=== PATIENT | female | born 1965 | race Caucasian/White ===

== ENCOUNTER → 2016-07-08 | Outpatient (CLI) | payer OTHER ==
[~2016-07-08] MED LIST: ALBUTEROL17 GM INH; AMLODIPINE BESY10 MG PO; AMOXICILLIN; AMOXICILLIN500 M1 PO; APRESOLINE10 M1 DOB; AUGMENTIN PO; BACTRIM DS TABL1 TA1 PO; BREO ELLIPTA 21 EACH; CATAPRES0.3 MG PO; COLACE PO; COMBIVENT INH14.7 GM INH; COMBIVENT U/D3 M1 INH; COMBIVENT U/D3 M2 INH; COUMADIN3 MG; DELTASONE20 MG PO; DOXYCYCLINE PO; DUONEB 2.5-0.5 M3 ML; FENOFIBRATE200 M1 PO; FLEXERIL PO; FLEXERIL10 M1 PO; HYCODAN60 ML 5MG/ PO; HYDROCODON-ACE1 EAC5 PO; HYDROCODONE-APA1 T51 PO; K-DUR10 MEQ PO; KLONOPIN PO; LASIX20 MG PO; LEVAQUIN PO; LISINOPRIL PO; LORTAB 10-5001 EACH PO; MEDROL DOSEPAK4 MG PO; MOTRIN400 MG PO; NICODERM C1 PATCH .3; NICODERM CQ1 EACH; PERCOCET 5-3251 TAB PO; PHENERGAN W/CO120 ML PO; POTASSIUM20 MEQ/11; PREDNISONE; PREDNISONE PO; PREDNISONE10 MG/DOSE PO; PRILOSEC PO; PROTONIX PO; PULMICORT0.5 MG/2 M IH; SEROQUEL PO; TRAMADOL HCL50 M1; TRAMADOL HCL50 M1 PO; VIBRAMYCIN100 M1 PO; VICODIN 5/1 TAB 5/50 PO; WATER PILL; ZANAFLEX4 M1 PO; ZESTRIL10 M1 PO; ZESTRIL10 MG PO
--- NOTE | ~2016-07-08 | MY11 ---
[facility] A Service of [facility] RADIOLOGY TEXT RESULTS PATIENT: DEYVI COON LOCATION: [facility] : [birth year] UNIT #: [id number] AGE: [address]: TOBI ROTHMAN SEX: F ORDER DR: [id number] [facility] [address]. [place], [place] [address] [id number] O MR#: [id number] Acc #: [id number] NAME: DEYVI COON. : 1965 SEX: F STUDY DATE/TIME: 07/08/2016 15:42 UNIT: [facility] ROOM: STUDY DESCRIPTION: MY Mammogram Screening Dig Jose Attending Physician: Tobi Rothman M.D. Referring Physician: Tobi Rothman M.D. Ordering Physician: Tobi Rothman M.D. Primary Care Physician: Tobi Rothman M.D. MEDICAL IMAGING REPORT This report is preliminary unless electronic signature is present EXAM Screening mammogram, 07/08 INDICATIONS 50-year-old with no personal or family history of breast cancer. No current complaints. FINDINGS Routine digital screening views of both breasts were obtained. Study is reviewed with an FDA-approved CAD device. Comparison made with 12/04/2009. Breast parenchyma shows scattered fibroglandular densities. There are no new masses. There are benign calcifications in both breasts. There is a small group of calcifications in the left breast in the upper inner quadrant. These are probably benign but they are increased. Magnification views recommended. IMPRESSION 1. Benign right mammogram. 2. Small cluster of calcifications in the left upper inner quadrant. Magnification views recommended. Patients over the age of 40 are entered into a reminder system with target due date for the next mammogram. A result letter will also be sent to the patient. BIRADS: 0 Need Additional Imaging Evaluation and/or Prior Mammograms For Evaluation Dictated by... [facility] A Service of [facility] RADIOLOGY TEXT RESULTS PATIENT: DEYVI COON LOCATION: [facility] : 65 UNIT #: [id number] AGE: [address]: TOBI ROTHMAN SEX: F ORDER DR: Matt Peterson Jr., M.D. THIS IS AN ELECTRONICALLY VERIFIED REPORT Matt Peterson Jr., M.D. at 07/09/2016 10:17 AM HEATHER/leonardo TD: 07/08/2016 21:43 JOB #: [id number] MEDICAL IMAGING REPORT Page 1 of 1 COPY
== END | disposition home or self-care (01) ==
LOC: CWCC 15:11
DX: Z12.31 Encounter for screening mammogram for malignant neoplasm of breast (principal); R92.1 Mammographic calcification found on diagnostic imaging of breast
CPT/HCPCS: G0202

== ENCOUNTER → 2016-09-09 | Outpatient (CLI) | payer OTHER ==
--- NOTE | ~2016-09-09 | EKG ---
PATIENT: DEYVI COON UNIT #: [id number] Ventricular Rate: 73 BPM Atrial Rate: 73 BPM P-R Interval: 148 ms QRS Duration: 78 ms Q-T Interval: 386 ms QTC Calculation(Bezet): 425 ms P [place]: 52 degrees Calculated R [place]: 37 degrees Calculated T [place]: 36 degrees Diagnosis Line: Normal sinus rhythm Diagnosis Line: Normal ECG Diagnosis Line: When compared with ECG of 25-AUG-2012 05:55, Diagnosis Line: No significant change was found Diagnosis Line: Confirmed by SAMY NOEL MD ([id number]) on Diagnosis Line: 09/09/2016 5:12:04 PM INTERPRETING MD: SADIE HOU
[2016-09-09 14:35] LABS: HEMATOCRIT 38.2 % (35.0-45.0); HEMOGLOBIN 12.9 gm/dL (12.0-16.0); MEAN CORPUSCULAR HEMOGLOBIN 30.1 PG (28-34); MEAN CORPUSCULAR HGB CONC 33.8 g/dL (30-36); MEAN PLATELET VOLUME 6.9 FL (6.5-11.5); RED BLOOD COUNT 4.3 X10e (3.90-5.30); RED CELL DISTRIBUTION WIDTH 13.9 % (11.0-15.5); WHITE BLOOD COUNT 10.6 X10e3 (4.0-10.5)
[2016-09-09 15:12] LABS: BUN/CREATININE RATIO 11.11; CREATININE SERUM 0.9 mg/dL (0.6-1.4); GLOM FILT RATE Estimated 74.6 mL/min (>60); POTASSIUM 3.6 mmol/L (3.5-5.1)
== END | disposition home or self-care (01) ==
LOC: CAMB 14:00
PROVIDERS: Specialist
DX: Z01.818 Encounter for other preprocedural examination (principal); K43.2 Incisional hernia without obstruction or gangrene; K42.9 Umbilical hernia without obstruction or gangrene
CPT/HCPCS: 36415; 80048; 85027; 93005

== ENCOUNTER → 2016-09-16 | Day surgery (SDC) | payer OTHER ==
--- NOTE | ~2016-09-16 | OR ---
Unit #: [id number] #: [id number] Patient: DEYVI COON [id number] [address] [place], [place] [address] [id number] O MR#: [id number] NAME: DEYVI COON ROOM: Date of Procedure: 09/16/2016 Admission Date: 09/16/2016 Surgeon: Matt Martínez M.D. : 1965 Attending Physician: Matt Martínez M.D. Primary Care Physician: Tobi Gonzalez M.D. OPERATIVE REPORT PREOPERATIVE DIAGNOSES Incarcerated incisional hernia and incarcerated umbilical hernia. POSTOPERATIVE DIAGNOSES Incarcerated incisional hernia and incarcerated umbilical hernia. PROCEDURES PERFORMED Open repair incisional ventral hernia with 8 cm Ventralex mesh and open repair of incarcerated umbilical hernia with 8 cm Ventralex mesh. ANESTHESIA General endotracheal anesthesia. ESTIMATED BLOOD LOSS Less than 20 mL. INDICATIONS FOR PROCEDURE A 51-year-old female, who has had a previous gastrostomy tube, presented with a painful and incarcerated hernia at the old G-tube site. She also had an incarcerated umbilical hernia. DESCRIPTION OF PROCEDURE The patient was admitted to [facility], positively identified, and transported to the operating room, and after induction of general endotracheal anesthesia, she received antibiotics per SCIP protocol and was prepped and draped in usual sterile fashion. At the gastrostomy tube site, a wedge excision was performed to remove the old scar. I dissected down through the soft tissue, identified the hernia sac, opened the hernia sac at the level of the fascia and mobilized and reduced the incarcerated omentum. The fascial defect was about 2.5 cm. I palpated through the defect and no other palpable defects were noted. An 8 cm Ventralex mesh was positioned in the peritoneal cavity and pulled up taut against the underlying fascia. It was secured circumferentially with 0 Ethibond interrupted sutures. 0.5% Marcaine with epinephrine was infiltrated in the fascia. Soft tissue was closed with 3-0 Vicryl interrupted sutures and the skin was reapproximated with 4-0 Monocryl subcuticular closure and Dermabond skin adhesive. At the umbilicus, a transverse incision was made below the umbilicus. The umbilical skin was from the hernia sac. The hernia sac was opened at the level of the fascia circumferentially and the incarcerated omentum was able to be reduced back in the peritoneal cavity. Again, palpating through the defect, no other defects were noted. An 8 cm Ventralex mesh was placed in Unit #: [id number] #: [id number] Patient: DEYVI COON K the peritoneal cavity and pulled up against the anterior abdominal wall and secured circumferentially with 0 Ethibond interrupted sutures. Once the fascia and the mesh were appropriately positioned and closed, 0.5% Marcaine with epinephrine was infiltrated into the fascia and soft tissue. During the case, a total of 30 mL of Marcaine was infiltrated. An umbilicoplasty was performed. Then, the soft tissue was closed using 3-0 Vicryl interrupted suture and the skin was reapproximated with 4-0 Monocryl running subcuticular closure. Dermabond skin adhesive was placed. Sponges and needle counts were correct x3. The patient tolerated the procedure well and was transported to recovery in stable condition. Findings and postoperative instructions were discussed with her family. Dictated by... Kristan Sharp/naty TD: 09/16/2016 12:59 JOB #: [id number] OPERATIVE REPORT Page 1 of 1 X Matt Martínez MD X PROCEDURE OPERATIVE NOTE
== END | disposition home or self-care (01) ==
LOC: CSUR 07:01
DX: K43.0 Incisional hernia with obstruction, without gangrene (principal); K42.0 Umbilical hernia with obstruction, without gangrene; I10 Essential (primary) hypertension; J45.909 Unspecified asthma, uncomplicated; K21.9 Gastro-esophageal reflux disease without esophagitis; J44.9 Chronic obstructive pulmonary disease, unspecified; M06.9 Rheumatoid arthritis, unspecified; E78.00 Pure hypercholesterolemia, unspecified; F17.210 Nicotine dependence, cigarettes, uncomplicated; F41.9 Anxiety disorder, unspecified; Z86.2 Personal history of diseases of the blood and blood-forming organs and certain disorders involving the immune mechanism; Z88.8 Allergy status to other drugs, medicaments and biological substances; Z79.51 Long term (current) use of inhaled steroids; Z79.899 Other long term (current) drug therapy; Z79.891 Long term (current) use of opiate analgesic; Z93.1 Gastrostomy status; Z98.890 Other specified postprocedural states
CPT/HCPCS: J0131; J0330; J0690; J1100; J1170; J2270; J2405; J2710; J3010